=== PATIENT | female | born 2000 | race Hispanic/Latino ===

== ENCOUNTER 2019-01-20 13:34 | Outpatient (CLI) | payer OTHER ==
--- NOTE | 2019-01-20 16:19 | ULT ---
ULTRASOUND OBSTETRICAL COMPLETE: 01/20/19 HISTORY: 18-year-old female for anatomical survey. FINDINGS: number: Marino. lie: Cephalic. Maternal cervix: 4 cm in length and closed. Placenta: Anterior. No placenta previa. Amniotic fluid volume: MARISA 15 cm. heart rate: 165 bpm The following anatomy is visualized, with no evidence of anomalies: Head, lateral ventricles, cerebellum, nose and lips, spine, upper limbs, lower limbs, four chamber he art, umbilical cord, cord insertion, stomach, kidneys, and bladder. biometry: Head circumference (HC): 19.0 cm 21w 2d Biparietal diameter (BPD): 5.1 cm 21w 4d Abdominal circumference (AC): 16.0 cm 21w 0d Femur length (FL): 3.5 cm 21w 1d Average ultrasound age (AUA): 21w 0d Estimated date of delivery (HARPER): 06/02/2019. Last menstrual period (LMP): 08/26/2018 Gestational age by LMP: 21w 0d Estimated weight (EFW): 400 g +/- 59 g (0 lb. 14 oz. +/- 2 oz.) IMPRESSION: 1. Live second trimester intrauterine gestation. 2. Estimated gestational age of 21 weeks, 0 days. 3. Cephalic lie. 4. No anatomical abnormalities. jn [] POS: TPC
== END 2019-01-20 13:35 | disposition home or self-care (01) ==
LOC: SCSULT 13:34
PROVIDERS: ATTEND Family Medicine
DX: Z34.02 Encounter for supervision of normal first pregnancy, second trimester (principal); Z3A.21 21 weeks gestation of pregnancy
CPT/HCPCS: 76805

== ENCOUNTER 2019-02-03 14:35 | Day surgery (SDC) | payer OTHER ==
[2019-02-03 16:08] LABS: Bilirubin Negative (Negative); Blood, Urine Negative (Negative); Clarity Clear (Clear); Glucose, Urine (Dipstick) 200 mg/dL (Negative); Leukocyte Negative Leu/uL (Negative); Nitrite Negative (Negative); Protein, Urine (Dipstick) Negative (Neg-Trace); Urobilinogen Normal mg/dL (Less than 2)
[2019-02-03 16:42] LABS: #Lymphocytes 1.7 thou/uL (1.20-3.40); #Monocytes 0.6 thou/uL (0.11-0.59); #Neutrophils 6.3 thou/uL (1.40-6.50); %Basophils 0.2 % (0.0-1.0); %Eosinophils 0.3 % (0.0-10.0); %Lymphocytes 19.5 % (28.0-48.0); %Monocytes 6.6 % (0.0-4.0); %Neutrophils 73.4 % (31.0-61.0); Hemoglobin 9.6 g/dL (12.0-16.0); Mean Corpuscular HGB CONC 34.8 g/dL (32.0-36.0); Mean Corpuscular Hemoglobin 31.6 pg (25.0-35.0); Mean Corpuscular Volume 90.6 fL (78.0-98.0); Mean Platelet Volume 6.5 fL (7.4-10.4); Platelet Count 266 thou/uL (130-400); RBC Distribution Width 12.6 % (11.5-14.5); Red Blood Cell (RBC) Count 3.03 mill/uL (4.00-5.20); White Blood Cell (WBC) Count 8.6 thou/uL (4.8-10.8)
[2019-02-03 17:04] LABS: ALT (SGPT) 20 U/L (8-55); AST (SGOT) 23 U/L (5-34); Albumin 3.7 g/dL (3.5-5.0); Alkaline Phosphatase 49 U/L (40-150); Anion Gap 10 mmol/L (10-20); BUN (Urea Nitrogen) 6 mg/dL (7.0-18.7); Bilirubin, Total 0.2 mg/dL (0.2-1.2); Calc. Creatinine Clearance 0 mL/min (70-130); Calcium 9.2 mg/dL (7.8-10.44); Carbon Dioxide 23 mmol/L (22-29); Chloride 103 mmol/L (98-107); Estimated GFR-MDRD Greater than 90; Globulin 2.8 g/dL (2.4-3.5); Glucose 131 mg/dL (70-105); Potassium 3.6 mmol/L (3.5-5.1); Protein, Total 6.5 g/dL (6.0-8.3); Sodium 132 mmol/L (136-145)
[2019-02-03 18:17] VITALS: BMI 22.2
[2019-02-03] MEDS ORDERED: hydrALAZINE 20 MG/ML VIAL SLOW IVP PRN (19:18)
--- NOTE | 2019-02-03 21:10 | PRG ---
DATE OF SERVICE: 02/03/2019 PRIMARY OB: Dr. Brett Villanueva. CHIEF COMPLAINT: Back pain and difficulty sleeping. HISTORY OF PRESENT ILLNESS: The patient is a 18-year-old G1, P0 female with an intrauterine at 23 weeks gestation, who presented to the emergency room downstairs for intermittent back pain and difficulty sleeping. She was given of a L of IV fluids and after evaluation, was sent to Labor and Delivery for further evaluation. The patient at the time of our encounter reports that she had no more back pain and was overall feeling better with IV fluids. She reports that she had presented because she was worried about the . She has been under a lot of stress and is having difficulty sleeping for the last couple of days. She reports that she falls asleep and then when she wakes up, she cannot go back to sleep. She has tried changing her daily habits and tried not napping without success. She has also tried to be more active by walking around in the mall without success. The patient reports that she has a lot going on in her life and a lot of things that she worries about. She reports that her back pain is intermittent and it happens infrequently, again reports that she is not having any other pain currently. She saw her primary OB, Dr. Villanueva, last week and I scheduled to see him at the end of the month. The patient denies any fever, headache, chest pain, shortness of breath, nausea, vomiting, diarrhea, constipation, hip problems, knee problems, muscle weakness, any new rashes, vaginal bleeding, leakage of fluid, urinary urgency or frequency. PAST MEDICAL HISTORY: Negative. PAST SURGICAL HISTORY: Negative. ALLERGIES: NO KNOWN DRUG ALLERGIES. MEDICATIONS: vitamins. SOCIAL HISTORY: Denies drug, alcohol, or tobacco use. OB LABS: Unavailable at time of dictation. PHYSICAL EXAMINATION: VITAL SIGNS: Blood pressure 101/61, heart rate of 93, respiratory rate 18, temperature 98.4. GENERAL: She appears to be in no acute distress. She is alert, oriented, cooperative, and pleasant to interact with. HEENT: Head is normocephalic, atraumatic. LUNGS: Clear to auscultation bilaterally. HEART: Regular rate and rhythm. ABDOMEN: Gravid and soft. EXTREMITIES: Nontender, nonedematous. : Deferred. Fetus has Doppler heart tones in the 150s. There are no contractions visible on the tocometer. ASSESSMENT AND PLAN: About 15 minutes were spent [id number] in discussion specifically about insomnia. We discussed good sleep hygiene practices including keeping the room dark and cool, covering up windows and sources of light, patterns and rituals before bed to help prepare the mind and body for sleep. We have also recommended using Benadryl at night for the next few nights in an effort to get some good sleep and to continue some of the changes that she has made with less napping during the day and more physical activity. The patient has an appointment with her primary physician at the end of the month, which we have encouraged that she keep. We have also discussed that if she continues to have difficulty sleeping and it is affecting the rest of her ability to function during the day, then we would recommend that she can make an appointment sooner to have that conversation with her doctor as there may be other options for her to help. Fetus has appropriate Dopplers for gestational age. The patient is being discharged to home. Job ID: [id number]
== END 2019-02-03 19:15 | disposition home or self-care (01) ==
LOC: ERS 14:35 → L&D/OP 18:12
PROVIDERS: ATTEND Family Medicine
DX: O99.343 Other mental disorders complicating pregnancy, third trimester (principal); G47.00 Insomnia, unspecified; O99.89 Other specified diseases and conditions complicating pregnancy, childbirth and the puerperium; M54.9 Dorsalgia, unspecified; Z3A.23 23 weeks gestation of pregnancy
CPT/HCPCS: 36415; 80053; 81003; 85025; 96360

== ENCOUNTER 2019-06-01 17:48 | Inpatient (IN) | payer OTHER ==
[2019-06-01] MEDS ORDERED: Ibuprofen 800 MG TAB PO PRN (18:52)
[2019-06-01] MEDS ORDERED: HYDROcodone/Acetaminophen 5/325 mg Tablet PO PRN (18:52)
[2019-06-01] MEDS ORDERED: Butorphanol Tartrate 1 MG/ML VIAL SLOW IVP PRN (18:52)
[2019-06-01] MEDS ORDERED: hydrALAZINE 20 MG/ML VIAL SLOW IVP PRN (18:52)
[2019-06-01] MEDS ORDERED: Lidocaine 1% (PF) 30 ML VIAL SC PRN (18:52)
[2019-06-01] MEDS ORDERED: Ondansetron PF 4 MG/2 ML Vial IVP PRN (18:52)
[2019-06-01 19:00] VITALS: BMI 27.8
[2019-06-01] MEDS ORDERED: Lactated Ringer's 1,000 ML IV SCH (19:00)
[2019-06-01] MEDS ORDERED: FLU VACC QS2019-20(6MOS UP)/PF 60 MCG/0.5 ML SYRINGE IM ONE (19:00)
[2019-06-01 20:21] LABS: Hemoglobin 10.7 g/dL (12.0-16.0); Mean Corpuscular HGB CONC 33.7 g/dL (32.0-36.0); Mean Corpuscular Hemoglobin 26.7 pg (25.0-35.0); Mean Corpuscular Volume 79.2 fL (78.0-98.0); Mean Platelet Volume 8.7 fL (7.4-10.4); Platelet Count 186 thou/uL (130-400); RBC Distribution Width 13.3 % (11.5-14.5); Red Blood Cell (RBC) Count 4.02 mill/uL (4.00-5.20); White Blood Cell (WBC) Count 12.5 thou/uL (4.8-10.8)
[2019-06-01] MEDS ORDERED: Fentanyl 4 mcg/Bup 0.1% Cadd 100 ML ONE (20:21)
[2019-06-01] MEDS: Lactated Ringer's 1,000 ML IV SCH (20:44)
[2019-06-01 20:52] LABS: Syphilis Antibody Nonreactive (Nonreactive); Syphilis Antibody Index 0.05 S/CO (<1.00 Non-Reactive)
[2019-06-01 23:16] LABS: HBSAg Index 0.15 S/CO (0-0.99); Hep B Surf Ag Non-Reactive S/CO (NonReactive)
[2019-06-02] MEDS: Lactated Ringer's 1,000 ML IV SCH (03:35)
[2019-06-02] MEDS ORDERED: Fentanyl 4 mcg/Bup 0.1% Cadd 100 ML ONE (04:30)
[2019-06-02] MEDS ORDERED: Lactated Ringer's 500 ML IV PRN (06:29)
[2019-06-02] MEDS ORDERED: Naloxone HCl 0.4 mg/ml Vial IVP PRN ×2 (06:29)
[2019-06-02] MEDS ORDERED: Promethazine HCl 25 MG/ML VIAL IM PRN (06:29)
[2019-06-02] MEDS ORDERED: ePHEDrine/0.9% NaCl/PF SYRINGE 50 mg/10 ml SLOW IVP PRN (06:29)
[2019-06-02] MEDS ORDERED: Ondansetron PF 4 MG/2 ML Vial IVP PRN ×2 (06:29→11:11)
[2019-06-02] MEDS ORDERED: Acetaminophen 325 MG TAB PO PRN (06:29)
[2019-06-02] MEDS ORDERED: diphenhydrAMINE 50 MG/ML VIAL IVP PRN (06:29)
[2019-06-02] MEDS ORDERED: Communication Order-Pharmacy FS SCH (06:30)
[2019-06-02] MEDS ORDERED: Fentanyl 4 mcg/Bupivacaine 0.1% Cassette 100 ML EPIDURAL SCH (06:30)
[2019-06-02] MEDS: NS / Oxytocin 40 units/1000ml 1,000 ML IV PRN ×2 (07:21→09:10)
[2019-06-02] MEDS ORDERED: Bisacodyl 10 MG SUPP PR PRN (11:11)
[2019-06-02] MEDS ORDERED: Adacel (T-DAP) 0.5 ML SYRINGE IM ONE (11:11)
[2019-06-02] MEDS ORDERED: diphenhydrAMINE 25 MG CAP PO PRN (11:11)
[2019-06-02] MEDS ORDERED: hydrALAZINE 20 MG/ML VIAL SLOW IVP PRN (11:11)
[2019-06-02] MEDS ORDERED: Milk Of Magnesia 30 ML UDCUP PO PRN (11:11)
[2019-06-02] MEDS ORDERED: Lanolin Ointment 7 GM TUBE TOP PRN (11:11)
[2019-06-02] MEDS ORDERED: HYDROcodone/Acetaminophen 5/325 mg Tablet PO PRN ×2 (11:11)
[2019-06-02] MEDS ORDERED: Benzocaine-Menthol 82.5 ML CAN TOP PRN (11:11)
[2019-06-02] MEDS ORDERED: NS / Oxytocin 40 units/1000ml 1,000 ML IV SCH (11:11)
[2019-06-02] MEDS ORDERED: Ferrous Sulfate 325 MG TAB PO SCH ×2 (11:30→17:00)
[2019-06-02] MEDS ORDERED: Docusate Calcium (SURFAK) 240 MG CAP PO SCH (11:30)
[2019-06-02] MEDS ORDERED: Prenatal Vitamin 1 TAB PO SCH (11:30)
[2019-06-02] MEDS ORDERED: Lactated Ringer's 1,000 ML IV SCH (13:30)
[2019-06-02] MEDS: Ibuprofen 800 MG TAB PO SCH ×2 (14:25→21:34)
[2019-06-02] MEDS: Ferrous Sulfate 325 MG TAB PO SCH (14:48)
[2019-06-02] MEDS: Docusate Calcium (SURFAK) 240 MG CAP PO SCH (21:33)
[2019-06-03] MEDS: Ibuprofen 800 MG TAB PO SCH ×3 (05:14→22:13)
[2019-06-03 05:34] LABS: Critical Call w/ Read Back 3NE.OA; Hemoglobin 4.6 g/dL (12.0-16.0)
[2019-06-03] MEDS ORDERED: Sodium Chloride 0.9% 10 ML ONE ×2 (05:53→06:03)
[2019-06-03 05:59] LABS: Mean Corpuscular HGB CONC 33.2 g/dL (32.0-36.0); Mean Corpuscular Volume 81.3 fL (78.0-98.0); Mean Platelet Volume 7.3 fL (7.4-10.4); Platelet Count 111 thou/uL (130-400); RBC Distribution Width 13.5 % (11.5-14.5); White Blood Cell (WBC) Count 12.9 thou/uL (4.8-10.8)
[2019-06-03] MEDS: Ferrous Sulfate 325 MG TAB PO SCH ×2 (08:06→17:29)
[2019-06-03] MEDS: Docusate Calcium (SURFAK) 240 MG CAP PO SCH ×2 (08:06→22:14)
[2019-06-03] MEDS: Prenatal Vitamin 1 TAB PO SCH (08:06)
[2019-06-04 04:53] LABS: Hemoglobin 7.7 g/dL (12.0-16.0); Mean Corpuscular HGB CONC 34.5 g/dL (32.0-36.0); Mean Corpuscular Hemoglobin 29.2 pg (25.0-35.0); Mean Corpuscular Volume 84.7 fL (78.0-98.0); Mean Platelet Volume 7.5 fL (7.4-10.4); Platelet Count 130 thou/uL (130-400); RBC Distribution Width 14.8 % (11.5-14.5); Red Blood Cell (RBC) Count 2.64 mill/uL (4.00-5.20); White Blood Cell (WBC) Count 11.7 thou/uL (4.8-10.8)
[2019-06-04 08:26] VITALS: BP 120/64; TEMP 98.3
[2019-06-04] MEDS: Prenatal Vitamin 1 TAB PO SCH (09:05)
[2019-06-04] MEDS: Ferrous Sulfate 325 MG TAB PO SCH ×2 (09:05→17:25)
[2019-06-04] MEDS: Docusate Calcium (SURFAK) 240 MG CAP PO SCH (09:05)
[2019-06-04] MEDS: Ibuprofen 800 MG TAB PO SCH ×2 (13:55)
== END 2019-06-04 17:50 | disposition home or self-care (01) | DRG 806 ==
LOC: L&D/OP 17:48 → L&D 19:25 → 3SW 06-02 11:52
PROVIDERS: ADMIT Family Medicine; ATTEND Family Medicine
PROC: 10E0XZZ Delivery of Products of Conception, External Approach (ICD-10-PCS; principal; 2019-06-02)
PROC: 0HQ9XZZ Repair Perineum Skin, External Approach (ICD-10-PCS; 2019-06-02)
DX: O48.0 Post-term pregnancy (principal); D62 Acute posthemorrhagic anemia; Z37.0 Single live birth; Z3A.40 40 weeks gestation of pregnancy; O99.02 Anemia complicating childbirth; O70.0 First degree perineal laceration during delivery; O69.81X0 Labor and delivery complicated by cord around neck, without compression, not applicable or unspecified
CPT/HCPCS: 36415; 36430; 51702; 85027; 86780; 86850; 86900; 86901; 87340; 99285; P9016